=== PATIENT | male | born 1955 | race Caucasian/White ===

== ENCOUNTER 2017-11-16 17:51 | Emergency (ER) | payer OTHER ==
[~2017-11-16] VITALS: Ht 177.8 cm; Wt 90.7 kg
[~2017-11-16 17:51] MED LIST: AMIT10 PO; Amitiza8 MCG; Ativan1 MG SL; BACL10 PO; CEPH500 PO; CYCL10 PO; DEXL60CA3 PO; DULO30 PO; DULO60; DULOXETINE HCL60 MG PO; Flonase 0.05% N16 GM; GABA100; HYDHCL10 PO; ISOMON30 PO; LORA.5 PO; Loratadine10 MG PO; MEDICAL MARAJUANA; MELO7.5 PO; Miralax17 GM PO; Norco 5-325 Ta1 EACH PO; OXYC15ER PO; PREG100 PO; PREG25 PO; PROM25S PR; Percocet 10-321 EACH PO; Percocet 5-3251 EACH PO; TRAM50 PO; Zofran Odt8 MG SL; Zofran8 MG PO; [UNRECOGNIZED DRUG - OTHER]
[2017-11-16 18:37] LABS: Hematocrit 44.2 % (37.0-53.0); Hemoglobin 15.6 g/dL (13.5-17.5); Mean Corpuscular HGB 28.2 pg (26.0-34.0); Mean Corpuscular HGB Conc 35.3 g/dL (31.5-36.5); Mean Corpuscular Volume 80 fL (80-100); Mean Platelet Volume 9.6 fL (9.1-12.4); Platelet Count 391 K/mm3 (150-400); RDW Coefficient Variation 12.3 % (11.7-14.2); Red Blood Cell Count 5.54 M/mm3 (4.30-5.90)
[2017-11-16 18:42] LABS: Anion Gap 11 mmol/L (6-16); Blood Urea Nitrogen 16 mg/dL (8-24); CO2, Blood 24 mmol/L (21-32); Calcium, Blood 8.6 mg/dL (8.5-10.1); Chloride, Blood 103 mmol/L (98-108); Glomerular Filtration Rate >60 (60-); Glucose, Blood 96 mg/dL (70-99); Potassium, Blood 3.3 mmol/L (3.5-5.5); Sodium, Blood 138 mmol/L (136-145); Troponin I <0.015 ng/mL (0.000-0.040)
== END 2017-11-16 19:33 | disposition home or self-care (01) ==
LOC: ER 17:51
PROVIDERS: Emergency Medicine
DX: R07.89 Other chest pain (principal); F43.9 Reaction to severe stress, unspecified
CPT/HCPCS: 36415; 71045; 80048; 84484; 85027; 93005; 93010; 96374; 99283; J2060

== ENCOUNTER 2019-06-02 14:24 | Emergency (ER) | payer OTHER ==
[~2019-06-02] VITALS: Ht 177.8 cm; Wt 97.1 kg
[2019-06-02 15:10] LABS: BASOPHILS ABSOLUTE AUTO 0.07 K/mm3 (0.00-0.23); BASOPHILS PERCENT AUTO 1 % (0-2); EOSINOPHILS PERCENT AUTO 1 % (0-6); Hematocrit 46.4 % (37.0-53.0); Hemoglobin 15.6 g/dL (13.5-17.5); IMMATURE GRAN ABSOLUTE AUTO 0.03 K/mm3 (0.00-0.10); IMMATURE GRAN PERCENT AUTO 0 % (0-1); LYMPHOCYTES ABSOLUTE AUTO 2.53 K/mm3 (0.84-5.20); LYMPHOCYTES PERCENT AUTO 35 % (21-46); MONOCYTES ABSOLUTE AUTO 0.62 K/mm3 (0.16-1.47); MONOCYTES PERCENT AUTO 9 % (4-13); Mean Corpuscular HGB 28.6 pg (26.0-34.0); Mean Corpuscular HGB Conc 33.6 g/dL (31.5-36.5); Mean Corpuscular Volume 85 fL (80-100); Mean Platelet Volume 9.4 fL (9.1-12.4); NEUTROPHILS ABSOLUTE AUTO 3.93 K/mm3 (1.96-9.15); NEUTROPHILS PERCENT AUTO 54 % (41-73); Platelet Count 326 K/mm3 (150-400); RDW Coefficient Variation 12.9 % (11.7-14.2); RDW Standard Deviation 39.6 fL (35.1-46.3); Red Blood Cell Count 5.45 M/mm3 (4.30-5.90); White Blood Cell Count 7.28 K/mm3 (4.00-11.30)
[2019-06-02 15:25] LABS: Alanine Aminotransfer (ALT/SGP 31 U/L (12-78); Albumin, Blood 3.7 g/dL (3.4-5.0); Albumin/Globulin Ratio 1.2 (0.8-1.8); Alk Phos 89 U/L (50-136); Anion Gap 4 mmol/L (6-16); Aspartate Aminotrans (AST/SGOT 18 U/L (12-37); Bilirubin, Total 0.7 mg/dL (0.1-1.0); Blood Urea Nitrogen 22 mg/dL (8-24); CO2, Blood 29 mmol/L (21-32); Calcium, Blood 8.6 mg/dL (8.5-10.1); Chloride, Blood 109 mmol/L (98-108); Creatinine, Blood 1.05 mg/dL (0.60-1.20); Globulin, Blood 3.1 g/dL (2.2-4.0); Glomerular Filtration Rate >60 (60-); Glucose, Blood 103 mg/dL (70-99); Potassium, Blood 4.1 mmol/L (3.5-5.5); Sodium, Blood 142 mmol/L (136-145); Total Protein, Blood 6.8 g/dL (6.4-8.2); Troponin I <0.015 ng/mL (0.000-0.040)
== END 2019-06-02 17:05 | disposition home or self-care (01) ==
LOC: ER 14:24
PROVIDERS: Physician Assistant
DX: R42 Dizziness and giddiness (principal); R68.83 Chills (without fever); Z88.8 Allergy status to other drugs, medicaments and biological substances; Z79.899 Other long term (current) drug therapy
CPT/HCPCS: 36415; 71046; 80053; 83605; 83880; 84484; 85025; 87040; 93005; 93010; 99284-25

== ENCOUNTER 2021-12-08 05:59 | Day surgery (SDC) | payer OTHER ==
[~2021-12-08] VITALS: Ht 177.8 cm; Wt 100.0 kg
[~2021-12-08 05:59] MED LIST changes: +ATOR80 PO; +ATROVENT HFA12.9 GM IH; -Amitiza8 MCG; +Amitiza8 MCG PO; +Aspir 8181 MG PO; +FLONASE SENSIM5.9 M1 NS; -GABA100; +GABA100 PO
--- NOTE | 2021-12-08 07:57 | NUR ---
PT TO RECOVERY ROOM FROM LAB VIA RECLINER. REPORT FROM MARIBEL STAFFORD.
[2021-12-08] MEDS ORDERED: Isosorbide Mono30 MG PO (08:20)
--- NOTE | 2021-12-08 08:33 | NUR ---
PT EATING BREAKFAST, AT BEDSIDE. RIGHT WRIST WITH TR BAND IN PLACE. NO BLEEDING OR SWELLING NOTED TO SITE.
--- NOTE | 2021-12-08 09:25 | NUR ---
RIGHT WRIST TR BAND HAS BEEN FULLY DEFLATED, NO BLEEDING OR SWELLING NOTED TO SITE. PT HAS AMBULATED TO THE BATHROOM WITHOUT DIFFICULTY.
--- NOTE | 2021-12-08 09:58 | NUR ---
pt given dc instructions and verbalized understanding. iv out w/ cath intact. tr band removed. site soft and non-tender. cloth dot placed on site. arm board reapplied to wrist. sling applied. pt changed into street clothes. pt taken to parking lot via where spouse michael is waiting w/ car to take pt home.
== END 2021-12-08 10:00 | disposition home or self-care (01) ==
LOC: MHTC 05:59
DX: I11.9 Hypertensive heart disease without heart failure (principal); E78.5 Hyperlipidemia, unspecified; R60.9 Edema, unspecified; E66.9 Obesity, unspecified; Z88.5 Allergy status to narcotic agent; Z88.8 Allergy status to other drugs, medicaments and biological substances; Z87.891 Personal history of nicotine dependence
CPT/HCPCS: 93458; 99152; 99153; C1769; C1887; C1894; J1644; J2250; J3010; J7030; Q9967

== ENCOUNTER 2022-06-23 08:59 | Day surgery (SDC) | payer OTHER ==
[~2022-06-23] VITALS: Ht 177.8 cm; Wt 95.2 kg
[~2022-06-23 08:59] MED LIST changes: +Isosorbide Mono30 MG PO
[2022-06-23] MEDS ORDERED: IPRATROPIUM BRO30 ML (09:14)
[2022-06-23] MEDS ORDERED: Bisoprolol Fumar5 MG (09:14)
[2022-06-23] MEDS ORDERED: PREG50 (09:14)
== END 2022-06-23 11:30 | disposition home or self-care (01) ==
LOC: ORSCSDS 08:59
PROVIDERS: Internal Medicine Gastroenterology
PROC: 0DBL8ZX Excision of Transverse Colon, Via Natural or Artificial Opening Endoscopic, Diagnostic (ICD-10-PCS; principal; 2022-06-23 10:15)
DX: Z12.11 Encounter for screening for malignant neoplasm of colon (principal); Z86.010 Personal history of colon polyps; D12.3 Benign neoplasm of transverse colon; K57.30 Diverticulosis of large intestine without perforation or abscess without bleeding; K64.8 Other hemorrhoids
CPT/HCPCS: 88305; J2704; J7120

== ENCOUNTER 2024-01-04 10:29 | Day surgery (SDC) | payer OTHER ==
[~2024-01-04] VITALS: Ht 177.8 cm; Wt 96.0 kg
[~2024-01-04 10:29] MED LIST changes: +Bisoprolol Fumar5 MG; +IPRATROPIUM BRO30 ML; +Lactated Ringer's 1,000 ML IV ONE; +PREG50; +propofoL 50 ML IV ONE
[2024-01-04] MEDS ORDERED: AZELASTINE137 MCG/06 (10:42)
[2024-01-04] MEDS ORDERED: Lactated Ringer's 1,000 ML IV ONE (10:59)
[2024-01-04 12:18] VITALS: BP 134/92
== END 2024-01-04 12:22 | disposition home or self-care (01) ==
LOC: ORSCSDS 10:29
PROVIDERS: Specialist
PROC: 0DJD8ZZ Inspection of Lower Intestinal Tract, Via Natural or Artificial Opening Endoscopic (ICD-10-PCS; principal; 2024-01-04 11:45)
DX: Z12.11 Encounter for screening for malignant neoplasm of colon (principal); Z86.010 Personal history of colon polyps; K64.8 Other hemorrhoids; E78.5 Hyperlipidemia, unspecified; K57.30 Diverticulosis of large intestine without perforation or abscess without bleeding; Z79.82 Long term (current) use of aspirin; Z79.899 Other long term (current) drug therapy
CPT/HCPCS: J2704; J7120